=== PATIENT | male | born 1995 | race African-American/Black ===

== ENCOUNTER 2016-12-16 13:21 | Emergency (ER) | payer OTHER ==
[2016-12-16 13:13] LABS: INFLUENZA A NEG (NEG); INFLUENZA B NEG (NEG)
== END 2016-12-16 13:48 | disposition home or self-care (01) ==
LOC: CFTX 13:21
PROVIDERS: Nurse Practitioner
DX: J06.9 Acute upper respiratory infection, unspecified (principal)
CPT/HCPCS: 87651; 87804; 99282